=== PATIENT | female | born 1960 | race Caucasian/White ===

== ENCOUNTER 2021-08-19 16:51 | Emergency (ER) | payer OTHER ==
[~2021-08-19] VITALS: Ht 167.6 cm; Wt 90.0 kg
[2021-08-19] MEDS ORDERED: METF-1211 PO (17:16)
[2021-08-19] MEDS ORDERED: LISI-661 PO (17:16)
[2021-08-19 17:24] LABS: COVID AG,FIA SOURCE NASOPHARYNGEAL
[2021-08-19 17:26] LABS: GLUCOSE,POINT OF CARE 102 MG/DL (70-110)
[2021-08-19 19:47] VITALS: BP 142/80
== END 2021-08-19 20:09 | disposition home or self-care (01) ==
LOC: EMS 16:51
DX: U07.1 COVID-19 (principal); E11.9 Type 2 diabetes mellitus without complications; I10 Essential (primary) hypertension
CPT/HCPCS: 82962; 99283